=== PATIENT | male | born 1985 | race Caucasian/White ===

== ENCOUNTER → 2020-10-02 10:08 | Outpatient (CLI) | payer BC, SELFPAY ==
[2020-10-02 12:34] LABS: CRP < 2.90 mg/L (0.0-3.0)
[2020-10-03 16:09] LABS: Endomysial Antibody IgA Negative (Negative); Immunoglobulin A 61 mg/dL (90-386)
[2020-10-03 16:54] LABS: t-Transglutaminase IgA <2 U/mL (0-3)
== END ==
PROVIDERS: PCP Internal Medicine; Referring Provider Internal Medicine Gastroenterology; Visit Provider Internal Medicine Gastroenterology
DX: R19.7 Diarrhea, unspecified (principal)
CPT/HCPCS: 36415; 82784; 83516; 86140; 86255

== ENCOUNTER → 2020-10-11 10:56 | Outpatient (CLI) | payer BC, SELFPAY | PROVIDERS: PCP Internal Medicine; Referring Provider Internal Medicine Gastroenterology; Visit Provider Internal Medicine Gastroenterology | DX: K58.9 Irritable bowel syndrome, unspecified (principal) | CPT/HCPCS: 36415; 83516 ==